=== PATIENT | male | born 1940 | race African-American/Black ===

== ENCOUNTER 2017-07-31 17:08 | Inpatient (IN) ==
[2017-07-31] MEDS ORDERED: ALBUTEROL/IPRATROPIUM 3 ML NEB RESP TX STA (18:01)
[2017-07-31] MEDS ORDERED: LEVOFLOXACIN INJ 750 MG in PREMIX 1 EACH IV STA (18:01)
[2017-07-31] MEDS ORDERED: SODIUM CHLORIDE 0.9% 1,000 ML IV STA (18:01)
[2017-07-31] MEDS ORDERED: methylPREDNISolone SOD SUC 125 MG/2 ML VIAL IV STA (18:01)
[2017-07-31 18:18] LABS: Basophils % 0.1 % (0.0-0.8); Hematocrit 43.5 VOL% (42.0-52.0); Hemoglobin 14.9 GM/DL (14.0-18.0); Immature Granulocytes % 0.6 %; Immature Granulocytes Absolute 0.13 #; Lymphocytes # 1.8 10*3/uL (1.4-4.0); Lymphocytes % 8.8 % (21.2-54.2); Mean Corpuscular HGB Conc 34.3 GM/DL (32-36); Mean Corpuscular Hemoglobin 27 PG (27-34); Mean Corpuscular Volume 78.8 FL (87-102); Mean Platelet Volume 9.5 FL (9.6-12.0); Monocytes # 1.7 10*3/uL (0.11-0.8); Monocytes % 8.2 % (1.7-12.7); Neutrophils # 16.5 10*3/uL (1.4-7.4); Neutrophils % 82.3 % (38.7-73.9); Platelet Count 346 T/CUMM (130-400); Red Blood Count 5.52 MC/CUMM (3.8-5.5); Red Cell Distribution Width 14.4 % (9.3-17.3); White Blood Count 20.1 T/CUMM (4-12)
[2017-07-31] MEDS ORDERED: LEVOFLOXACIN INJ 150 ML IV ONE (18:29)
[2017-07-31] MEDS ORDERED: methylPREDNISolone SOD SUC 125 MG/2 ML VIAL ONE (18:29)
[2017-07-31 18:36] LABS: Apearance,Urine CLOUDY (Clear); Bilirubin,Urine Negative (Negative); Blood, Urine Large mg/dL (Negative); Glucose,Urine (UA) 50 mg/dL (Negative); Ketones,Urine Negative (Negative); Nitrite,Urine Negative (Negative); Protein,Urine 100 MG/DL; RBC,Urine 117 /HPF (0-4); Urine Color Amber (Yellow); Urine Specific Gravity 1.009 (1.001-1.035); WBC,Urine 3067 /HPF (0-6)
[2017-07-31 18:47] LABS: Troponin I Only < 0.015 NG/ML (0.00-0.045)
[2017-07-31 18:59] LABS: Bilirubin,Total 0.6 MG/DL (0.2-1.0); Calcium 8.8 MG/DL (8.5-10.1); Osmolality,Calculated 288.1 MOS/KG (273-304); Potassium 3.2 MMOL/L (3.5-5.1); Total Protein 7.5 G/DL (6.4-8.3)
[2017-07-31 19:52] LABS: Lymphocytes 10 % (20-55); Platelet Estimate Normal; Segmented Neutrophils 85 % (50-85); Total Cells Counted 100
[2017-07-31] MEDS ORDERED: ONDANSETRON 4 MG/2 ML VIAL IV PRN (20:11)
[2017-07-31] MEDS ORDERED: GLUCAGON 1 MG VIAL IM PRN (20:19)
[2017-07-31] MEDS ORDERED: VANCOMYCIN INJ 1,000 MG in SODIUM CHLORIDE 0.9% 250 ML IV SCH (20:30)
[2017-07-31] MEDS: metFORMIN 500 MG TABLET PO SCH (22:59)
[2017-07-31] MEDS: SODIUM CHLORIDE 0.9% 1,000 ML IV SCH (23:01)
[2017-07-31] MEDS: AZTREONAM 1,000 MG in SODIUM CHLORIDE 0.9% 50 ML IV SCH (23:10)
[2017-07-31] MEDS: FERROUS SULFATE 300 MG/5 ML UDCUP PEG SCH (23:13)
[2017-07-31] MEDS: levETIRAcetam LIQUID 100 MG/ML 30 ML/BOTTLE PEG SCH (23:13)
[2017-07-31] MEDS: INSULIN GLARGINE 100 UNIT/ML SUBCUT SCH (23:16)
[2017-07-31] MEDS: ENOXAPARIN 40 MG/0.4 ML SYRINGE SUBCUT SCH (23:17)
[2017-08-01] MEDS ORDERED: VANCOMYCIN INJ 1,500 MG in SODIUM CHLORIDE 0.9% 500 ML IV SCH
[2017-08-01] MEDS: ALBUTEROL/IPRATROPIUM 3 ML NEB RESP TX SCH ×4 (00:36→19:52)
[2017-08-01] MEDS: INSULIN LISPRO 100 UNIT/ML SUBCUT SCH ×4 (02:21→21:43)
[2017-08-01 05:59] LABS: Basophils % 0.1 % (0.0-0.8); Hematocrit 35.9 VOL% (42.0-52.0); Hemoglobin 11.9 GM/DL (14.0-18.0); Immature Granulocytes % 0.6 %; Immature Granulocytes Absolute 0.09 #; Lymphocytes # 1.3 10*3/uL (1.4-4.0); Lymphocytes % 7.9 % (21.2-54.2); Mean Corpuscular HGB Conc 33.1 GM/DL (32-36); Mean Corpuscular Hemoglobin 27 PG (27-34); Mean Corpuscular Volume 80.7 FL (87-102); Mean Platelet Volume 10.3 FL (9.6-12.0); Monocytes % 6.3 % (1.7-12.7); Neutrophils # 13.7 10*3/uL (1.4-7.4); Neutrophils % 85.1 % (38.7-73.9); Platelet Count 318 T/CUMM (130-400); Red Blood Count 4.45 MC/CUMM (3.8-5.5); Red Cell Distribution Width 14.6 % (9.3-17.3); White Blood Count 16.1 T/CUMM (4-12)
[2017-08-01 06:28] LABS: Calcium 8.4 MG/DL (8.5-10.1); Osmolality,Calculated 294.6 MOS/KG (273-304); Potassium 3.5 MMOL/L (3.5-5.1)
[2017-08-01] MEDS: GABAPENTIN 100 MG CAPSULE PEG SCH (09:42)
[2017-08-01] MEDS: levETIRAcetam LIQUID 100 MG/ML 30 ML/BOTTLE PEG SCH ×2 (09:43→21:48)
[2017-08-01] MEDS: AZTREONAM 1,000 MG in SODIUM CHLORIDE 0.9% 50 ML IV SCH ×2 (09:43→21:49)
[2017-08-01] MEDS: metFORMIN 500 MG TABLET PO SCH ×2 (09:43→16:58)
[2017-08-01] MEDS: FERROUS SULFATE 300 MG/5 ML UDCUP PEG SCH ×2 (09:43→21:49)
[2017-08-01] MEDS: MULTIVITAMIN LIQUID (CENTRUM) 60 ML BOTTLE PEG SCH (09:43)
[2017-08-01] MEDS: PANTOPRAZOLE 40 MG TABLET PO SCH (09:43)
[2017-08-01] MEDS: CLOPIDOGREL 75 MG TABLET PEG SCH (09:43)
[2017-08-01] MEDS: MAGNESIUM OXIDE 400 MG TABLET PEG SCH (09:49)
[2017-08-01] MEDS: INSULIN GLARGINE 100 UNIT/ML SUBCUT SCH ×3 (09:50→21:49)
[2017-08-01] MEDS: SODIUM CHLORIDE 0.9% 1,000 ML IV SCH (14:24)
[2017-08-01] MEDS: ENOXAPARIN 40 MG/0.4 ML SYRINGE SUBCUT SCH (21:49)
[2017-08-02] MEDS: VANCOMYCIN INJ 1,500 MG in SODIUM CHLORIDE 0.9% 500 ML IV SCH ×2 (00:36→23:58)
[2017-08-02] MEDS: INSULIN LISPRO 100 UNIT/ML SUBCUT SCH ×4 (00:39→19:02)
[2017-08-02] MEDS: ALBUTEROL/IPRATROPIUM 3 ML NEB RESP TX SCH ×4 (01:45→18:50)
[2017-08-02 06:21] LABS: Basophils % 0.2 % (0.0-0.8); Eosinophils # 0.1 10*3/uL (0.0-0.87); Eosinophils % 0.6 % (0.00-10.9); Hematocrit 34.1 VOL% (42.0-52.0); Hemoglobin 11.2 GM/DL (14.0-18.0); Immature Granulocytes % 0.5 %; Immature Granulocytes Absolute 0.06 #; Lymphocytes # 1.9 10*3/uL (1.4-4.0); Lymphocytes % 14.6 % (21.2-54.2); Mean Corpuscular HGB Conc 32.8 GM/DL (32-36); Mean Corpuscular Hemoglobin 27 PG (27-34); Mean Platelet Volume 10.5 FL (9.6-12.0); Monocytes % 7.5 % (1.7-12.7); Neutrophils # 9.7 10*3/uL (1.4-7.4); Neutrophils % 76.6 % (38.7-73.9); Platelet Count 286 T/CUMM (130-400); Red Blood Count 4.16 MC/CUMM (3.8-5.5); Red Cell Distribution Width 14.9 % (9.3-17.3); White Blood Count 12.7 T/CUMM (4-12)
[2017-08-02 06:47] LABS: Calcium 7.9 MG/DL (8.5-10.1); Potassium 3.3 MMOL/L (3.5-5.1)
[2017-08-02] MEDS: SODIUM CHLORIDE 0.9% 1,000 ML IV SCH (09:30)
[2017-08-02] MEDS: FERROUS SULFATE 300 MG/5 ML UDCUP PEG SCH ×2 (09:31→23:08)
[2017-08-02] MEDS: INSULIN GLARGINE 100 UNIT/ML SUBCUT SCH ×2 (09:31→23:07)
[2017-08-02] MEDS: MAGNESIUM OXIDE 400 MG TABLET PEG SCH (09:32)
[2017-08-02] MEDS: PANTOPRAZOLE 40 MG TABLET PO SCH (09:32)
[2017-08-02] MEDS: CLOPIDOGREL 75 MG TABLET PEG SCH (09:32)
[2017-08-02] MEDS: metFORMIN 500 MG TABLET PO SCH ×2 (09:32→17:15)
[2017-08-02] MEDS: GABAPENTIN 100 MG CAPSULE PEG SCH (09:32)
[2017-08-02] MEDS: levETIRAcetam LIQUID 100 MG/ML 30 ML/BOTTLE PEG SCH ×2 (09:34→23:08)
[2017-08-02] MEDS: MULTIVITAMIN LIQUID (CENTRUM) 60 ML BOTTLE PEG SCH (09:34)
[2017-08-02] MEDS: AZTREONAM 1,000 MG in SODIUM CHLORIDE 0.9% 50 ML IV SCH (10:26)
[2017-08-02] MEDS ORDERED: POTASSIUM CHLORIDE 20 MEQ/15 ML UDCUP PER TUBE PRN (11:37)
[2017-08-02] MEDS: MEROPENEM 1,000 MG in SODIUM CHLORIDE 0.9% 50 ML IV SCH ×2 (14:37→23:06)
[2017-08-02] MEDS: DEXTROSE 5% NACL 0.45% 1,000 ML IV SCH (17:21)
[2017-08-02] MEDS: ENOXAPARIN 40 MG/0.4 ML SYRINGE SUBCUT SCH (23:08)
[2017-08-03] MEDS: INSULIN LISPRO 100 UNIT/ML SUBCUT SCH ×4 (00:11→18:29)
[2017-08-03] MEDS: DEXTROSE 50% 25 GM/50 ML VIAL IV PRN (00:20)
[2017-08-03] MEDS: ALBUTEROL/IPRATROPIUM 3 ML NEB RESP TX SCH ×4 (00:46→19:27)
[2017-08-03 02:34] LABS: Basophils % 0.2 % (0.0-0.8); Eosinophils # 0.2 10*3/uL (0.0-0.87); Eosinophils % 1.9 % (0.00-10.9); Hemoglobin 10.8 GM/DL (14.0-18.0); Immature Granulocytes % 0.6 %; Immature Granulocytes Absolute 0.07 #; Lymphocytes # 2.2 10*3/uL (1.4-4.0); Lymphocytes % 20.4 % (21.2-54.2); Mean Corpuscular HGB Conc 32.7 GM/DL (32-36); Mean Corpuscular Hemoglobin 27 PG (27-34); Mean Corpuscular Volume 81.9 FL (87-102); Mean Platelet Volume 10.2 FL (9.6-12.0); Monocytes # 0.9 10*3/uL (0.11-0.8); Monocytes % 8.1 % (1.7-12.7); Neutrophils # 7.5 10*3/uL (1.4-7.4); Neutrophils % 68.8 % (38.7-73.9); Platelet Count 292 T/CUMM (130-400); Red Blood Count 4.03 MC/CUMM (3.8-5.5); Red Cell Distribution Width 14.6 % (9.3-17.3); White Blood Count 10.8 T/CUMM (4-12)
[2017-08-03 03:10] LABS: Calcium 7.8 MG/DL (8.5-10.1); Magnesium 1.8 MG/DL (1.8-2.4); Osmolality,Calculated 294.1 MOS/KG (273-304); Potassium 2.9 MMOL/L (3.5-5.1)
[2017-08-03] MEDS: MEROPENEM 1,000 MG in SODIUM CHLORIDE 0.9% 50 ML IV SCH ×3 (07:25→23:19)
[2017-08-03] MEDS: INSULIN GLARGINE 100 UNIT/ML SUBCUT SCH ×2 (08:47→21:36)
[2017-08-03] MEDS: metFORMIN 500 MG TABLET PO SCH ×2 (08:48→16:16)
[2017-08-03] MEDS: MAGNESIUM OXIDE 400 MG TABLET PEG SCH (08:48)
[2017-08-03] MEDS: LANSOPRAZOLE ODT 30 MG TABLET PO SCH (08:48)
[2017-08-03] MEDS: CLOPIDOGREL 75 MG TABLET PEG SCH (08:48)
[2017-08-03] MEDS: FERROUS SULFATE 300 MG/5 ML UDCUP PEG SCH ×2 (08:48→21:24)
[2017-08-03] MEDS: GABAPENTIN 100 MG CAPSULE PEG SCH (08:48)
[2017-08-03] MEDS: MULTIVITAMIN LIQUID (CENTRUM) 60 ML BOTTLE PEG SCH (08:49)
[2017-08-03] MEDS: levETIRAcetam LIQUID 100 MG/ML 30 ML/BOTTLE PEG SCH ×2 (08:50→21:25)
[2017-08-03] MEDS: DEXTROSE 5% NACL 0.45% 1,000 ML IV SCH (10:45)
[2017-08-03] MEDS: POTASSIUM CHLORIDE RIDER 10 MEQ in PREMIX 1 EACH IV PRN ×7 (10:51→23:05)
[2017-08-03] MEDS: ENOXAPARIN 40 MG/0.4 ML SYRINGE SUBCUT SCH (21:35)
[2017-08-04] MEDS: ALBUTEROL/IPRATROPIUM 3 ML NEB RESP TX SCH ×4 (00:48→19:00)
[2017-08-04] MEDS: POTASSIUM CHLORIDE RIDER 10 MEQ in PREMIX 1 EACH IV PRN ×8 (00:55→21:13)
[2017-08-04] MEDS: INSULIN LISPRO 100 UNIT/ML SUBCUT SCH ×4 (01:25→18:20)
[2017-08-04] MEDS: VANCOMYCIN INJ 1,500 MG in SODIUM CHLORIDE 0.9% 500 ML IV SCH (01:47)
[2017-08-04 06:28] LABS: Basophils % 0.1 % (0.0-0.8); Eosinophils # 0.4 10*3/uL (0.0-0.87); Eosinophils % 3.7 % (0.00-10.9); Hematocrit 32.9 VOL% (42.0-52.0); Hemoglobin 11.1 GM/DL (14.0-18.0); Immature Granulocytes % 0.6 %; Immature Granulocytes Absolute 0.06 #; Lymphocytes # 2.4 10*3/uL (1.4-4.0); Lymphocytes % 23.8 % (21.2-54.2); Mean Corpuscular HGB Conc 33.7 GM/DL (32-36); Mean Corpuscular Hemoglobin 27 PG (27-34); Mean Corpuscular Volume 80.6 FL (87-102); Mean Platelet Volume 9.3 FL (9.6-12.0); Monocytes # 0.8 10*3/uL (0.11-0.8); Neutrophils # 6.5 10*3/uL (1.4-7.4); Neutrophils % 63.8 % (38.7-73.9); Platelet Count 264 T/CUMM (130-400); Red Blood Count 4.08 MC/CUMM (3.8-5.5); Red Cell Distribution Width 14.6 % (9.3-17.3); White Blood Count 10.2 T/CUMM (4-12)
[2017-08-04] MEDS: DEXTROSE 50% 25 GM/50 ML VIAL IV PRN (06:35)
[2017-08-04 07:00] LABS: Calcium 8.2 MG/DL (8.5-10.1); Magnesium 1.7 MG/DL (1.8-2.4); Osmolality,Calculated 283.7 MOS/KG (273-304); Potassium 3.3 MMOL/L (3.5-5.1)
[2017-08-04] MEDS: MEROPENEM 1,000 MG in SODIUM CHLORIDE 0.9% 50 ML IV SCH ×3 (08:13→23:46)
[2017-08-04] MEDS: CLOPIDOGREL 75 MG TABLET PEG SCH (08:24)
[2017-08-04] MEDS: GABAPENTIN 100 MG CAPSULE PEG SCH (08:24)
[2017-08-04] MEDS: metFORMIN 500 MG TABLET PO SCH ×2 (08:24→17:00)
[2017-08-04] MEDS: FERROUS SULFATE 300 MG/5 ML UDCUP PEG SCH ×2 (08:24→21:23)
[2017-08-04] MEDS: MAGNESIUM OXIDE 400 MG TABLET PEG SCH (08:24)
[2017-08-04] MEDS: LANSOPRAZOLE ODT 30 MG TABLET PO SCH (08:24)
[2017-08-04] MEDS: levETIRAcetam LIQUID 100 MG/ML 30 ML/BOTTLE PEG SCH ×2 (08:25→21:22)
[2017-08-04] MEDS: MULTIVITAMIN LIQUID (CENTRUM) 60 ML BOTTLE PEG SCH (08:25)
[2017-08-04] MEDS: INSULIN GLARGINE 100 UNIT/ML SUBCUT SCH ×2 (08:26→21:58)
[2017-08-04] MEDS: DEXTROSE 5% NACL 0.45% 1,000 ML IV SCH (13:54)
[2017-08-04] MEDS ORDERED: VANCOMYCIN INJ 1,500 MG in SODIUM CHLORIDE 0.9% 500 ML IV SCH (20:00)
[2017-08-04] MEDS: ENOXAPARIN 40 MG/0.4 ML SYRINGE SUBCUT SCH (21:28)
[2017-08-05] MEDS: ALBUTEROL/IPRATROPIUM 3 ML NEB RESP TX SCH ×4 (00:33→19:48)
[2017-08-05] MEDS: INSULIN LISPRO 100 UNIT/ML SUBCUT SCH ×4 (00:59→18:33)
[2017-08-05 06:16] LABS: Basophils % 0.1 % (0.0-0.8); Eosinophils # 0.4 10*3/uL (0.0-0.87); Eosinophils % 5.5 % (0.00-10.9); Hematocrit 32.1 VOL% (42.0-52.0); Hemoglobin 10.6 GM/DL (14.0-18.0); Immature Granulocytes % 0.6 %; Immature Granulocytes Absolute 0.05 #; Lymphocytes # 1.7 10*3/uL (1.4-4.0); Mean Corpuscular Hemoglobin 27 PG (27-34); Mean Corpuscular Volume 81.7 FL (87-102); Mean Platelet Volume 10.4 FL (9.6-12.0); Monocytes # 0.6 10*3/uL (0.11-0.8); Monocytes % 6.9 % (1.7-12.7); Neutrophils # 5.3 10*3/uL (1.4-7.4); Neutrophils % 65.9 % (38.7-73.9); Platelet Count 281 T/CUMM (130-400); Red Blood Count 3.93 MC/CUMM (3.8-5.5); Red Cell Distribution Width 14.6 % (9.3-17.3)
[2017-08-05 06:47] LABS: Calcium 8.1 MG/DL (8.5-10.1); Osmolality,Calculated 285.1 MOS/KG (273-304); Potassium 4.1 MMOL/L (3.5-5.1)
[2017-08-05] MEDS: DEXTROSE 5% NACL 0.45% 1,000 ML IV SCH ×2 (07:47→08:59)
[2017-08-05] MEDS: MEROPENEM 1,000 MG in SODIUM CHLORIDE 0.9% 50 ML IV SCH (09:00)
[2017-08-05] MEDS: MULTIVITAMIN LIQUID (CENTRUM) 60 ML BOTTLE PEG SCH (09:03)
[2017-08-05] MEDS: INSULIN GLARGINE 100 UNIT/ML SUBCUT SCH ×2 (09:03→21:04)
[2017-08-05] MEDS: CLOPIDOGREL 75 MG TABLET PEG SCH (09:03)
[2017-08-05] MEDS: levETIRAcetam LIQUID 100 MG/ML 30 ML/BOTTLE PEG SCH ×2 (09:03→21:03)
[2017-08-05] MEDS: MAGNESIUM OXIDE 400 MG TABLET PEG SCH (09:04)
[2017-08-05] MEDS: metFORMIN 500 MG TABLET PO SCH ×2 (09:04→16:56)
[2017-08-05] MEDS: GABAPENTIN 100 MG CAPSULE PEG SCH (09:04)
[2017-08-05] MEDS: FERROUS SULFATE 300 MG/5 ML UDCUP PEG SCH ×2 (09:04→21:04)
[2017-08-05] MEDS: LANSOPRAZOLE ODT 30 MG TABLET PO SCH (09:04)
[2017-08-05] MEDS ORDERED: ERTAPENEM 1,000 MG in SODIUM CHLORIDE 0.9% 50 ML IV SCH (13:00)
[2017-08-05] MEDS: ENOXAPARIN 40 MG/0.4 ML SYRINGE SUBCUT SCH (21:04)
[2017-08-06] MEDS: ALBUTEROL/IPRATROPIUM 3 ML NEB RESP TX SCH ×2 (00:11→07:36)
[2017-08-06] MEDS: DEXTROSE 5% NACL 0.45% 1,000 ML IV SCH (01:29)
[2017-08-06] MEDS: INSULIN LISPRO 100 UNIT/ML SUBCUT SCH ×2 (01:35→06:34)
[2017-08-06 08:45] VITALS: BP 149/71
[2017-08-06] MEDS: FERROUS SULFATE 300 MG/5 ML UDCUP PEG SCH (10:19)
[2017-08-06] MEDS: INSULIN GLARGINE 100 UNIT/ML SUBCUT SCH (10:19)
[2017-08-06] MEDS: metFORMIN 500 MG TABLET PO SCH (10:20)
[2017-08-06] MEDS: GABAPENTIN 100 MG CAPSULE PEG SCH (10:20)
[2017-08-06] MEDS: CLOPIDOGREL 75 MG TABLET PEG SCH (10:20)
[2017-08-06] MEDS: LANSOPRAZOLE ODT 30 MG TABLET PO SCH (10:20)
[2017-08-06] MEDS: MAGNESIUM OXIDE 400 MG TABLET PEG SCH (10:20)
[2017-08-06] MEDS: levETIRAcetam LIQUID 100 MG/ML 30 ML/BOTTLE PEG SCH (10:25)
[2017-08-06] MEDS: MULTIVITAMIN LIQUID (CENTRUM) 60 ML BOTTLE PEG SCH (10:26)
== END 2017-08-06 10:55 | DRG 871 ==
LOC: EDUNIT# → EDBD → N.ED 17:08 → N.EDINP 20:00 → N.2E 21:23
PROVIDERS: ADMIT Internal Medicine; ATTEND Internal Medicine

== ENCOUNTER 2018-09-14 13:43 | Inpatient (IN) ==
[2018-09-14] MEDS ORDERED: MEROPENEM 1,000 MG in SODIUM CHLORIDE 0.9% 100 ML IV STA (14:09)
[2018-09-14 14:13] LABS: Basophils % 0.2 % (0.0-0.8); Eosinophils # 0.1 10*3/uL (0.0-0.87); Eosinophils % 1.2 % (0.00-10.9); Hematocrit 47.1 VOL% (42.0-52.0); Hemoglobin 14.4 GM/DL (14.0-18.0); Immature Granulocytes % 0.5 %; Immature Granulocytes Absolute 0.05 #; Lymphocytes # 3.5 10*3/uL (1.4-4.0); Lymphocytes % 33.1 % (21.2-54.2); Mean Corpuscular HGB Conc 30.6 GM/DL (32-36); Mean Corpuscular Hemoglobin 26 PG (27-34); Mean Corpuscular Volume 86.1 FL (87-102); Mean Platelet Volume 10.7 FL (9.6-12.0); Monocytes # 1.2 10*3/uL (0.11-0.8); Monocytes % 10.9 % (1.7-12.7); Neutrophils # 5.8 10*3/uL (1.4-7.4); Neutrophils % 54.1 % (38.7-73.9); Platelet Count 360 T/CUMM (130-400); Red Blood Count 5.47 MC/CUMM (3.8-5.5); Red Cell Distribution Width 16.8 % (9.3-17.3); White Blood Count 10.7 T/CUMM (4-12)
[2018-09-14 14:35] LABS: Alanine Aminotransferase 46 U/L (16-61); Albumin 2.9 G/DL (3.4-5.0); Alkaline Phosphatase 74 U/L (45-117); Aspartate Amino Transferase 36 U/L (0-37); Bilirubin,Total < 0.39 MG/DL (0.2-1.0); Blood Urea Nitrogen 23 MG/DL (7-18); Calcium 9.2 MG/DL (8.5-10.1); Glucose 178 MG/DL (74-106); Osmolality,Calculated 312.4 MOS/KG (273-304); Potassium 4.6 MMOL/L (3.5-5.1); Sodium 154 MMOL/L (136-145)
[2018-09-14 15:16] LABS: Apearance,Urine CLOUDY (Clear); Bilirubin,Urine Negative (Negative); Blood, Urine Small mg/dL (Negative); Glucose,Urine (UA) Negative (Negative); Ketones,Urine Negative (Negative); Mucus,Urine Many /LPF (Occasional); Nitrite,Urine Negative (Negative); Protein,Urine 100 MG/DL; RBC,Urine 45 /HPF (0-4); Urine Color Dark yellow (Yellow); Urine Specific Gravity 1.018 (1.001-1.035); Urine Urobilinogen < 2.0 EU/DL (0.2-1.0); WBC,Urine 1406 /HPF (0-6)
[2018-09-14 16:19] LABS: Ammonia 60 UMOL/L (11-32)
[2018-09-14] MEDS ORDERED: ONDANSETRON 4 MG/2 ML VIAL IV PRN (16:30)
[2018-09-14] MEDS ORDERED: ALBUTEROL/IPRATROPIUM 3 ML NEB RESP TX PRN (16:43)
[2018-09-14] MEDS ORDERED: GLUCAGON 1 MG VIAL IM PRN (17:03)
[2018-09-14] MEDS ORDERED: DEXTROSE 50% 25 GM/50 ML VIAL IV PRN (17:03)
[2018-09-14] MEDS: SODIUM CHLORIDE 0.45% 1,000 ML IV SCH (18:09)
[2018-09-14] MEDS: levETIRAcetam LIQUID 100 MG/ML 30 ML/BOTTLE PEG SCH (18:18)
[2018-09-14] MEDS: GABAPENTIN 50 MG/ML 30 ML/BOTTLE PEG SCH (18:19)
[2018-09-14] MEDS: POTASSIUM CHLORIDE 20 MEQ/15 ML UDCUP PEG SCH (18:19)
[2018-09-14] MEDS: INSULIN REGULAR 100 UNIT/ML SUBCUT SCH (20:53)
[2018-09-14] MEDS: RANITIDINE 150 MG/10 ML 30 ML BOTTLE PO SCH (20:54)
[2018-09-14] MEDS ORDERED: LACTULOSE 20 GM/30 ML UDCUP PO PRN (23:44)
[2018-09-14] MEDS ORDERED: LACTULOSE 20 GM/30 ML UDCUP PEG PRN (23:50)
[2018-09-15] MEDS: MEROPENEM 1,000 MG in SODIUM CHLORIDE 0.9% 100 ML IV SCH ×3 (01:57→21:43)
[2018-09-15] MEDS: LACTULOSE 20 GM/30 ML UDCUP PEG SCH ×4 (01:57→21:46)
[2018-09-15 04:35] LABS: Basophils % 0.2 % (0.0-0.8); Eosinophils # 0.3 10*3/uL (0.0-0.87); Eosinophils % 2.6 % (0.00-10.9); Hematocrit 41.4 VOL% (42.0-52.0); Hemoglobin 12.5 GM/DL (14.0-18.0); Immature Granulocytes % 0.4 %; Immature Granulocytes Absolute 0.04 #; Lymphocytes # 2.1 10*3/uL (1.4-4.0); Lymphocytes % 20.3 % (21.2-54.2); Mean Corpuscular HGB Conc 30.2 GM/DL (32-36); Mean Corpuscular Hemoglobin 26 PG (27-34); Mean Corpuscular Volume 86.6 FL (87-102); Monocytes # 0.9 10*3/uL (0.11-0.8); Monocytes % 8.6 % (1.7-12.7); Neutrophils % 67.9 % (38.7-73.9); Platelet Count 323 T/CUMM (130-400); Red Blood Count 4.78 MC/CUMM (3.8-5.5); Red Cell Distribution Width 16.4 % (9.3-17.3); White Blood Count 10.3 T/CUMM (4-12)
[2018-09-15 05:02] LABS: Calcium 8.5 MG/DL (8.5-10.1); Osmolality,Calculated 316.2 MOS/KG (273-304); Potassium 3.5 MMOL/L (3.5-5.1); Thyroid Stimulating Hormone 1.74 uIU/ml (0.358-3.74)
[2018-09-15] MEDS: levETIRAcetam LIQUID 100 MG/ML 30 ML/BOTTLE PEG SCH ×2 (05:33→21:44)
[2018-09-15] MEDS ORDERED: PANTOPRAZOLE 40 MG VIAL IV SCH (09:00)
[2018-09-15] MEDS: DOCUSATE SODIUM 100 MG CAPSULE PEG SCH (10:11)
[2018-09-15] MEDS: CLOPIDOGREL 75 MG TABLET PEG SCH (10:11)
[2018-09-15] MEDS: FERROUS SULFATE 300 MG/5 ML UDCUP PEG SCH (10:13)
[2018-09-15] MEDS: POTASSIUM CHLORIDE 20 MEQ/15 ML UDCUP PEG SCH ×2 (10:13→16:37)
[2018-09-15] MEDS: GABAPENTIN 50 MG/ML 30 ML/BOTTLE PEG SCH ×2 (10:14→16:37)
[2018-09-15] MEDS: INSULIN REGULAR 100 UNIT/ML SUBCUT SCH ×4 (10:15→21:46)
[2018-09-15] MEDS: MULTIVITAMIN LIQUID (CENTRUM) 60 ML BOTTLE PEG SCH (10:15)
[2018-09-15] MEDS: SODIUM CHLORIDE 0.45% 1,000 ML IV SCH ×2 (10:22→22:22)
[2018-09-15] MEDS ORDERED: DEXTROSE 50% 25 GM/50 ML VIAL IV PRN (12:17)
[2018-09-15] MEDS ORDERED: SKIN HEALING OINT (AQUAPHOR) 50 GM TUBE TOP PRN (14:53)
[2018-09-15] MEDS: RANITIDINE 150 MG/10 ML 30 ML BOTTLE PO SCH (21:43)
[2018-09-16] MEDS: LACTULOSE 20 GM/30 ML UDCUP PEG SCH ×4 (03:13→21:04)
[2018-09-16 04:11] LABS: Basophils % 0.2 % (0.0-0.8); Eosinophils # 0.4 10*3/uL (0.0-0.87); Hematocrit 41.2 VOL% (42.0-52.0); Hemoglobin 12.5 GM/DL (14.0-18.0); Immature Granulocytes % 0.4 %; Immature Granulocytes Absolute 0.04 #; Lymphocytes # 2.3 10*3/uL (1.4-4.0); Lymphocytes % 22.4 % (21.2-54.2); Mean Corpuscular HGB Conc 30.3 GM/DL (32-36); Mean Corpuscular Hemoglobin 27 PG (27-34); Mean Corpuscular Volume 87.3 FL (87-102); Mean Platelet Volume 11.5 FL (9.6-12.0); Monocytes # 0.6 10*3/uL (0.11-0.8); Monocytes % 6.1 % (1.7-12.7); Neutrophils # 6.9 10*3/uL (1.4-7.4); Neutrophils % 66.9 % (38.7-73.9); Platelet Count 305 T/CUMM (130-400); Red Blood Count 4.72 MC/CUMM (3.8-5.5); Red Cell Distribution Width 16.4 % (9.3-17.3); White Blood Count 10.3 T/CUMM (4-12)
[2018-09-16 04:21] LABS: Calcium 8.6 MG/DL (8.5-10.1); Potassium 3.3 MMOL/L (3.5-5.1)
[2018-09-16 04:25] LABS: Prealbumin 14.1 MG/DL (20-40)
[2018-09-16] MEDS: MEROPENEM 1,000 MG in SODIUM CHLORIDE 0.9% 100 ML IV SCH ×3 (04:34→21:06)
[2018-09-16] MEDS: CLOPIDOGREL 75 MG TABLET PEG SCH (09:22)
[2018-09-16] MEDS: INSULIN REGULAR 100 UNIT/ML SUBCUT SCH ×4 (09:22→21:05)
[2018-09-16] MEDS: POTASSIUM CHLORIDE 20 MEQ/15 ML UDCUP PEG SCH ×2 (09:23→16:52)
[2018-09-16] MEDS: levETIRAcetam LIQUID 100 MG/ML 30 ML/BOTTLE PEG SCH ×2 (09:23→21:05)
[2018-09-16] MEDS: MULTIVITAMIN LIQUID (CENTRUM) 60 ML BOTTLE PEG SCH (09:23)
[2018-09-16] MEDS: FERROUS SULFATE 300 MG/5 ML UDCUP PEG SCH (09:23)
[2018-09-16] MEDS: GABAPENTIN 50 MG/ML 30 ML/BOTTLE PEG SCH ×2 (09:24→16:48)
[2018-09-16] MEDS: POTASSIUM CHLORIDE 20 MEQ/15 ML UDCUP PER TUBE PRN ×3 (09:24→16:47)
[2018-09-16] MEDS: DOCUSATE SODIUM 100 MG CAPSULE PEG SCH (09:54)
[2018-09-16] MEDS: SODIUM CHLORIDE 0.45% 1,000 ML IV SCH (12:08)
[2018-09-16] MEDS ORDERED: VANCOMYCIN INJ 2,250 MG in SODIUM CHLORIDE 0.9% 500 ML IV ONE (14:00)
[2018-09-16] MEDS: RANITIDINE 150 MG/10 ML 30 ML BOTTLE PO SCH (21:04)
[2018-09-17] MEDS: VANCOMYCIN INJ 1,750 MG in SODIUM CHLORIDE 0.9% 500 ML IV SCH ×2 (02:13→14:53)
[2018-09-17] MEDS: LACTULOSE 20 GM/30 ML UDCUP PEG SCH ×4 (03:47→21:51)
[2018-09-17] MEDS: MEROPENEM 1,000 MG in SODIUM CHLORIDE 0.9% 100 ML IV SCH ×3 (05:43→21:49)
[2018-09-17 05:53] LABS: Basophils % 0.1 % (0.0-0.8); Eosinophils # 0.4 10*3/uL (0.0-0.87); Eosinophils % 4.1 % (0.00-10.9); Hematocrit 37.5 VOL% (42.0-52.0); Hemoglobin 11.2 GM/DL (14.0-18.0); Immature Granulocytes % 0.5 %; Immature Granulocytes Absolute 0.04 #; Lymphocytes # 1.7 10*3/uL (1.4-4.0); Mean Corpuscular HGB Conc 29.9 GM/DL (32-36); Mean Corpuscular Hemoglobin 27 PG (27-34); Mean Corpuscular Volume 89.1 FL (87-102); Mean Platelet Volume 11.8 FL (9.6-12.0); Monocytes # 0.4 10*3/uL (0.11-0.8); Monocytes % 4.9 % (1.7-12.7); Neutrophils # 6.1 10*3/uL (1.4-7.4); Neutrophils % 70.4 % (38.7-73.9); Platelet Count 264 T/CUMM (130-400); Red Blood Count 4.21 MC/CUMM (3.8-5.5); Red Cell Distribution Width 16.4 % (9.3-17.3); White Blood Count 8.6 T/CUMM (4-12)
[2018-09-17 06:25] LABS: Calcium 7.8 MG/DL (8.5-10.1); Osmolality,Calculated 326.7 MOS/KG (273-304); Potassium 3.9 MMOL/L (3.5-5.1)
[2018-09-17] MEDS: INSULIN REGULAR 100 UNIT/ML SUBCUT SCH ×4 (09:35→21:55)
[2018-09-17] MEDS: DOCUSATE SODIUM 100 MG CAPSULE PEG SCH (09:35)
[2018-09-17] MEDS: CLOPIDOGREL 75 MG TABLET PEG SCH (09:35)
[2018-09-17] MEDS: FERROUS SULFATE 300 MG/5 ML UDCUP PEG SCH (09:36)
[2018-09-17] MEDS: POTASSIUM CHLORIDE 20 MEQ/15 ML UDCUP PEG SCH ×2 (09:36→16:46)
[2018-09-17] MEDS: levETIRAcetam LIQUID 100 MG/ML 30 ML/BOTTLE PEG SCH ×2 (09:37→21:51)
[2018-09-17] MEDS: GABAPENTIN 50 MG/ML 30 ML/BOTTLE PEG SCH ×2 (09:38→16:46)
[2018-09-17] MEDS: MULTIVITAMIN LIQUID (CENTRUM) 60 ML BOTTLE PEG SCH (09:38)
[2018-09-17] MEDS: RANITIDINE 150 MG/10 ML 30 ML BOTTLE PO SCH (22:59)
[2018-09-18] MEDS: VANCOMYCIN INJ 1,750 MG in SODIUM CHLORIDE 0.9% 500 ML IV SCH ×2 (02:53→14:40)
[2018-09-18] MEDS: LACTULOSE 20 GM/30 ML UDCUP PEG SCH ×2 (03:02→09:10)
[2018-09-18] MEDS: MEROPENEM 1,000 MG in SODIUM CHLORIDE 0.9% 100 ML IV SCH (05:59)
[2018-09-18 07:56] LABS: Basophils % 0.2 % (0.0-0.8); Eosinophils # 0.2 10*3/uL (0.0-0.87); Immature Granulocytes % 0.5 %; Immature Granulocytes Absolute 0.06 #; Lymphocytes # 1.9 10*3/uL (1.4-4.0); Lymphocytes % 16.9 % (21.2-54.2); Mean Corpuscular Hemoglobin 27 PG (27-34); Mean Corpuscular Volume 88.7 FL (87-102); Mean Platelet Volume 11.6 FL (9.6-12.0); Monocytes # 0.5 10*3/uL (0.11-0.8); Neutrophils # 8.5 10*3/uL (1.4-7.4); Neutrophils % 76.4 % (38.7-73.9); Platelet Count 269 T/CUMM (130-400); Red Blood Count 4.51 MC/CUMM (3.8-5.5); Red Cell Distribution Width 16.6 % (9.3-17.3); White Blood Count 11.1 T/CUMM (4-12)
[2018-09-18 08:21] LABS: Calcium 8.3 MG/DL (8.5-10.1); Osmolality,Calculated 328.5 MOS/KG (273-304); Potassium 3.8 MMOL/L (3.5-5.1)
[2018-09-18] MEDS: POTASSIUM CHLORIDE 20 MEQ/15 ML UDCUP PEG SCH ×2 (09:00→16:59)
[2018-09-18] MEDS: INSULIN REGULAR 100 UNIT/ML SUBCUT SCH ×4 (09:00→22:17)
[2018-09-18] MEDS: FERROUS SULFATE 300 MG/5 ML UDCUP PEG SCH (09:01)
[2018-09-18] MEDS: levETIRAcetam LIQUID 100 MG/ML 30 ML/BOTTLE PEG SCH ×2 (09:02→22:19)
[2018-09-18] MEDS: MULTIVITAMIN LIQUID (CENTRUM) 60 ML BOTTLE PEG SCH (09:02)
[2018-09-18] MEDS: GABAPENTIN 50 MG/ML 30 ML/BOTTLE PEG SCH ×2 (09:02→16:59)
[2018-09-18] MEDS: DOCUSATE SODIUM 100 MG CAPSULE PEG SCH (09:03)
[2018-09-18] MEDS: CLOPIDOGREL 75 MG TABLET PEG SCH (09:03)
[2018-09-18] MEDS: DEXTROSE 5% 1,000 ML IV SCH ×2 (09:54→18:15)
[2018-09-18] MEDS ORDERED: INSULIN GLARGINE 100 UNIT/ML SUBCUT SCH (11:30)
[2018-09-18] MEDS: CEFEPIME 2,000 MG in SYRINGE 1 EACH IV SCH ×2 (13:32→21:55)
[2018-09-18] MEDS ORDERED: ACETAMINOPHEN 325 MG TABLET PO PRN (16:02)
[2018-09-18] MEDS: RANITIDINE 150 MG/10 ML 30 ML BOTTLE PO SCH (22:19)
[2018-09-19] MEDS: DEXTROSE 5% 1,000 ML IV SCH ×2 (01:44→09:22)
[2018-09-19] MEDS: CEFEPIME 2,000 MG in SYRINGE 1 EACH IV SCH ×3 (04:34→21:11)
[2018-09-19 06:01] LABS: Basophils % 0.1 % (0.0-0.8); Eosinophils # 0.2 10*3/uL (0.0-0.87); Hematocrit 34.8 VOL% (42.0-52.0); Hemoglobin 10.5 GM/DL (14.0-18.0); Immature Granulocytes % 0.4 %; Immature Granulocytes Absolute 0.04 #; Lymphocytes # 1.7 10*3/uL (1.4-4.0); Lymphocytes % 18.7 % (21.2-54.2); Mean Corpuscular HGB Conc 30.2 GM/DL (32-36); Mean Corpuscular Hemoglobin 26 PG (27-34); Mean Corpuscular Volume 87.2 FL (87-102); Mean Platelet Volume 12.6 FL (9.6-12.0); Monocytes # 0.5 10*3/uL (0.11-0.8); Neutrophils # 6.6 10*3/uL (1.4-7.4); Neutrophils % 73.8 % (38.7-73.9); Platelet Count 230 T/CUMM (130-400); Red Blood Count 3.99 MC/CUMM (3.8-5.5); Red Cell Distribution Width 16.2 % (9.3-17.3)
[2018-09-19 06:09] LABS: Calcium 8.2 MG/DL (8.5-10.1); Osmolality,Calculated 308.6 MOS/KG (273-304); Potassium 3.5 MMOL/L (3.5-5.1)
[2018-09-19] MEDS: INSULIN REGULAR 100 UNIT/ML SUBCUT SCH ×4 (09:04→21:12)
[2018-09-19] MEDS: POTASSIUM CHLORIDE 20 MEQ/15 ML UDCUP PEG SCH ×2 (09:04→16:06)
[2018-09-19] MEDS: DOCUSATE SODIUM 100 MG CAPSULE PEG SCH (09:04)
[2018-09-19] MEDS: INSULIN GLARGINE 100 UNIT/ML SUBCUT SCH (09:04)
[2018-09-19] MEDS: CLOPIDOGREL 75 MG TABLET PEG SCH (09:04)
[2018-09-19] MEDS: MULTIVITAMIN LIQUID (CENTRUM) 60 ML BOTTLE PEG SCH (09:05)
[2018-09-19] MEDS: FERROUS SULFATE 300 MG/5 ML UDCUP PEG SCH (09:05)
[2018-09-19] MEDS: levETIRAcetam LIQUID 100 MG/ML 30 ML/BOTTLE PEG SCH ×2 (09:05→21:11)
[2018-09-19] MEDS: GABAPENTIN 50 MG/ML 30 ML/BOTTLE PEG SCH ×2 (09:06→16:06)
[2018-09-19] MEDS ORDERED: FUROSEMIDE 40 MG/4 ML VIAL IV ONE (10:30)
[2018-09-19] MEDS: METHEN/SOD PHOS/METH BLUE/HYOS TABLET PO SCH ×2 (16:52→21:11)
[2018-09-19] MEDS: RANITIDINE 150 MG/10 ML 30 ML BOTTLE PO SCH (21:11)
[2018-09-20] MEDS: CEFEPIME 2,000 MG in SYRINGE 1 EACH IV SCH ×3 (04:56→21:22)
[2018-09-20 05:32] LABS: Calcium 8.2 MG/DL (8.5-10.1); Osmolality,Calculated 304.4 MOS/KG (273-304); Potassium 3.7 MMOL/L (3.5-5.1)
[2018-09-20] MEDS: DEXTROSE 5% 1,000 ML IV SCH (06:05)
[2018-09-20] MEDS: INSULIN REGULAR 100 UNIT/ML SUBCUT SCH ×4 (08:50→23:34)
[2018-09-20] MEDS: CLOPIDOGREL 75 MG TABLET PEG SCH (10:01)
[2018-09-20] MEDS: levETIRAcetam LIQUID 100 MG/ML 30 ML/BOTTLE PEG SCH ×2 (10:01→21:22)
[2018-09-20] MEDS: FERROUS SULFATE 300 MG/5 ML UDCUP PEG SCH (10:01)
[2018-09-20] MEDS: DOCUSATE SODIUM 100 MG CAPSULE PEG SCH (10:01)
[2018-09-20] MEDS: INSULIN GLARGINE 100 UNIT/ML SUBCUT SCH (10:01)
[2018-09-20] MEDS: MULTIVITAMIN LIQUID (CENTRUM) 60 ML BOTTLE PEG SCH (10:01)
[2018-09-20] MEDS: METHEN/SOD PHOS/METH BLUE/HYOS TABLET PO SCH ×4 (10:02→21:23)
[2018-09-20] MEDS: POTASSIUM CHLORIDE 20 MEQ/15 ML UDCUP PEG SCH ×2 (10:02→16:20)
[2018-09-20] MEDS ORDERED: GABAPENTIN 50 MG/ML 30 ML/BOTTLE PEG SCH (21:00)
[2018-09-20] MEDS: RANITIDINE 150 MG/10 ML 30 ML BOTTLE PO SCH (21:22)
[2018-09-21] MEDS: DEXTROSE 5% 1,000 ML IV SCH (02:05)
[2018-09-21] MEDS: CEFEPIME 2,000 MG in SYRINGE 1 EACH IV SCH (04:59)
[2018-09-21] MEDS: INSULIN REGULAR 100 UNIT/ML SUBCUT SCH (06:25)
[2018-09-21 07:33] LABS: Basophils % 0.1 % (0.0-0.8); Eosinophils # 0.2 10*3/uL (0.0-0.87); Eosinophils % 3.1 % (0.00-10.9); Hematocrit 31.8 VOL% (42.0-52.0); Hemoglobin 9.8 GM/DL (14.0-18.0); Immature Granulocytes % 0.3 %; Immature Granulocytes Absolute 0.02 #; Lymphocytes # 1.3 10*3/uL (1.4-4.0); Lymphocytes % 18.3 % (21.2-54.2); Mean Corpuscular HGB Conc 30.8 GM/DL (32-36); Mean Corpuscular Hemoglobin 26 PG (27-34); Mean Platelet Volume 12.5 FL (9.6-12.0); Monocytes # 0.5 10*3/uL (0.11-0.8); Monocytes % 6.2 % (1.7-12.7); Neutrophils # 5.2 10*3/uL (1.4-7.4); Platelet Count 180 T/CUMM (130-400); Red Blood Count 3.74 MC/CUMM (3.8-5.5); Red Cell Distribution Width 15.4 % (9.3-17.3); White Blood Count 7.2 T/CUMM (4-12)
[2018-09-21 07:54] LABS: Calcium 8.1 MG/DL (8.5-10.1); Potassium 3.6 MMOL/L (3.5-5.1)
[2018-09-21] MEDS: DOCUSATE SODIUM 100 MG CAPSULE PEG SCH (09:03)
[2018-09-21] MEDS: METHEN/SOD PHOS/METH BLUE/HYOS TABLET PO SCH (09:03)
[2018-09-21] MEDS: CLOPIDOGREL 75 MG TABLET PEG SCH (09:03)
[2018-09-21] MEDS: FERROUS SULFATE 300 MG/5 ML UDCUP PEG SCH (09:03)
[2018-09-21] MEDS: levETIRAcetam LIQUID 100 MG/ML 30 ML/BOTTLE PEG SCH (09:03)
[2018-09-21] MEDS: MULTIVITAMIN LIQUID (CENTRUM) 60 ML BOTTLE PEG SCH (09:04)
[2018-09-21] MEDS: POTASSIUM CHLORIDE 20 MEQ/15 ML UDCUP PEG SCH (09:04)
[2018-09-21] MEDS: INSULIN GLARGINE 100 UNIT/ML SUBCUT SCH (09:05)
[2018-09-21 12:10] VITALS: BP 116/62
== END 2018-09-21 12:15 | DRG 698 ==
LOC: EDBD → EDUNIT# → N.ED 13:43 → SUATTDRO 17:18 → N.2E 17:27
PROVIDERS: ADMIT Internal Medicine; ATTEND Family Medicine